=== PATIENT | female | born 1960 | race Caucasian/White ===

== ENCOUNTER → 2018-01-30 13:30 | Outpatient (CLI) | payer BC, SELFPAY ==
[2018-02-04 11:29] LABS: HPV APTIMA, High Risk Negative (Negative)
== END ==
PROVIDERS: Family Provider Family Medicine; PCP Family Medicine; Visit Provider Nurse Practitioner Women's Health
DX: Z12.4 Encounter for screening for malignant neoplasm of cervix (principal)
CPT/HCPCS: 88175; G0145

== ENCOUNTER → 2018-02-28 13:55 | Outpatient (CLI) | payer BC, SELFPAY ==
--- NOTE | 2018-02-28 13:57 | BI_ITS ---
MAMMOGRAPHY - BILATERAL SCREENING 3-D JEANINE SYNTHESIS REASON FOR EXAM: Female, 58 years old. Bilateral Screening 3-D tomosynthesis PERTINENT HISTORY: No significant family history. TECHNIQUE: 2-D mammograms and 3-D Jeanine synthesis of the breast (s) were performed. CAD was performed. COMPARISON: February 10, 2016. FINDINGS: The breast composition is composed of scattered fibroglandular density. No dense spiculated masses or suspicious microcalcifications are identified. No architectural distortion is identified. There is no skin thickening or retraction. There has been no significant change since the prior study. BI/SCREENING MAMM (CAD), BILAT IMPRESSION: No mammographic signs of malignancy. Routine yearly mammograms recommended. ASSESSMENT CATEGORY: BIRADS Category 1: Negative. A letter regarding these results will be sent to the patient by the facility within 30 days. FOLLOW UP RECOMMENDATION: Yearly follow up mammogram recommended. (A) Approximately 10% of breast cancers are not detected by mammography. A normal mammogram should not delay biopsy of a clinically suspicious abnormality. Electronically Signed: Jerson Doe MD at 15:10 EDT , Service support ,
== END ==
PROVIDERS: Family Provider Family Medicine; PCP Family Medicine; Visit Provider Nurse Practitioner Women's Health
DX: Z12.31 Encounter for screening mammogram for malignant neoplasm of breast (principal)
CPT/HCPCS: 77063; 77067

== ENCOUNTER → 2019-05-07 | Outpatient (CLI) | payer BC, SELFPAY ==
--- NOTE | 2019-05-07 08:38 | BI_ITS ---
MAMMOGRAPHY - BILATERAL SCREENING REASON FOR EXAM: Female, 59 years old. Routine annual screening examination. PERTINENT HISTORY: Non-contributory. TECHNIQUE: Digital bilateral breast jeanine (3D mammographic acquisition) in the CC and MLO projections. 2-D mediolateral oblique (MLO) and craniocaudad (CC) views of both breasts were obtained. CAD: Full Field Digital Mammography with Computer Added Detection was performed. COMPARISON: Comparison is made with prior study dated February 28, 2018. FINDINGS: Breast Composition: The breasts are almost entirely fatty. There are no dominant masses or suspicious calcifications. No other significant abnormalities are identified. There has been no significant change since the prior study. BI/SCREEN MAMM (CAD) W/JEANINE BILAT IMPRESSION: Stable bilateral screening mammogram. Yearly follow-up mammogram recommended. (A) ASSESSMENT CATEGORY: BIRADS Category 1: Negative. A letter regarding these results will be sent to the patient by the facility within 30 days. Approximately 10% of breast cancers are not detected by mammography. A normal mammogram should not delay biopsy of a clinically suspicious abnormality. [id number] Electronically Signed: Compa Cisneros, at 13:27 EDT , Service support ,
== END | disposition home or self-care (01) ==
LOC: OPBI 08:36
PROVIDERS: Family Provider Family Medicine; PCP Family Medicine; Referring Provider Nurse Practitioner Women's Health; Visit Provider Nurse Practitioner Women's Health
DX: Z12.31 Encounter for screening mammogram for malignant neoplasm of breast (principal)
CPT/HCPCS: 77063; 77067

== ENCOUNTER → 2020-09-28 13:13 | Outpatient (CLI) | payer BC, SELFPAY ==
[2019-05-07 09:02] VITALS: BMI 38.8
[2020-09-21 12:55] VITALS: BMI 39.2
--- NOTE | 2020-09-28 13:17 | BI_ITS ---
MAMMOGRAPHY - BILATERAL SCREENING REASON FOR EXAM: Female, 60 years old. Routine annual screening examination. PERTINENT HISTORY: Screening TECHNIQUE: Digital bilateral breast jeanine (3D mammographic acquisition) in the CC and MLO projections. 2-D mediolateral oblique (MLO) and craniocaudad (CC) views of both breasts were obtained. CAD: Full Field Digital Mammography with Computer Added Detection was performed. COMPARISON: 04/07/2019 FINDINGS: Breast Composition: Fatty There are no dominant masses or suspicious calcifications. No other significant abnormalities are identified. BI/SCREEN MAMM (CAD) W/JEANINE BILAT IMPRESSION: Stable bilateral screening mammogram. Yearly follow-up mammogram recommended. (A) ASSESSMENT CATEGORY: BIRADS Category 1: Negative. A letter regarding these results will be sent to the patient by the facility within 30 days. Approximately 10% of breast cancers are not detected by mammography. A normal mammogram should not delay biopsy of a clinically suspicious abnormality. [id number] Electronically Signed: Meng Le, at 17:46 EST Tel , Service support ,
== END ==
PROVIDERS: PCP Family Medicine; Referring Provider Nurse Practitioner Women's Health; Visit Provider Nurse Practitioner Women's Health
DX: Z12.31 Encounter for screening mammogram for malignant neoplasm of breast (principal)
CPT/HCPCS: 77063; 77067

== ENCOUNTER 2021-04-10 19:32 | Emergency (ER) | payer BC, SELFPAY ==
[2020-09-21 12:55] VITALS: BMI 39.2
[2021-04-10 19:32] VITALS: BP 145/95; PULSE 66; RESP 18; TEMP 35.9; O2SAT 95; BMI 37.3
--- NOTE | 2021-04-10 19:52 | ED.VIS.LOWEX ---
HPI History of Present Illness Chief Complaint: Lower Extremity Injury Informant: patient Occured/Mechanism Mechanism/Context: Yes same level fall Onset/Context/Timing Onset: Today Current Severity: Mild Maximum Severity: Moderate Narrative Narrative: Patient present secondary left ankle injury. Patient states she was going down some steps and rolled her left ankle. She fell backwards striking her car. She denies loss of consciousness. She is complaining of pain only to the left ankle, no other injury. She has been able to weight-bear. [facility] Medical History (Updated 04/10/21 @ 20:[address] Viv Banuelos MD) Anxiety Hyperlipidemia Hypertension Home Medications simvastatin 20 mg PO QODAY 09/29/14 [History Last Taken 01/08/17] sertraline 50 mg PO DAILY 02/08/17 [History Last Taken Unknown] metoprolol tartrate 50 mg tablet 50 mg PO BID tab 01/30/18 [History Last Taken Unknown] hydrochlorothiazide 25 mg tablet 25 mg PO DAILY 05/07/19 [History Last Taken Unknown] Allergy/AdvReac Type Severity Reaction Status Date / Time codeine AdvReac Upset Verified 04/10/21 19:34 Stomach Family History Mother Myocardial infarction Father Pancreatic cancer Grandfather Diabetes Surgical History S/P appendectomy S/P cholecystectomy Social History Smoking Status: Former smoker alcohol intake: current details: occasionally substance use type: does not use caffeine: Yes what type of physical activity do you participate in: walking frequency: 3-4 times per week seatbelt use: always do you feel safe at home: Yes additional social history: - Bill Patient and are both retired ROS ROS ED Constitutional Constitutional ED: Denies chills or fever(s) Eyes Eyes: Denies change in vision ENT ENT ED: Denies sore throat Cardiovascular Cardiovascular: Denies chest pain Respiratory/Chest Respiratory/Chest: Denies cough or dyspnea Gastrointestinal Gastrointestinal: Denies abdominal pain, diarrhea, nausea or vomiting Genitourinary Genitourinary ED: Denies dysuria Musculoskeletal Musculoskeletal: Reports arthralgias; Denies back pain Integumentary Denies rash Neurologic Neurologic: Denies headache(s) or weakness Psychiatric Psychiatric: Denies anxiety or depression Endocrine Endocrinology: Denies polydipsia or polyuria Allergic/Immunologic Allergic/Immunologic ED: Denies urticaria EXAM Physical Exam Const Vital Signs: 04/10/21 19:32 Temperature 96.6 F L Temperature Source Temporal Pulse Rate 66 Respiratory Rate 18 Blood Pressure 145/95 H Blood Pressure Mean 111 Pulse Ox 95 Oxygen Delivery Method Room Air Positive well nourished and well developed General Appearance ED: well developed HEENT Reports normocephalic and head/scalp atraumatic Eyes PERRL and EOMs intact bilaterally Neck supple Chest Wall inspection of chest normal and palpation of chest normal Resp normal respiratory effort and clear to auscultation bilaterally Cardio regular rate and regular rhythm GI normal to inspection, nondistended, normoactive bowel sounds Palpation: soft Extremity Extremity Narrative: Edema and tenderness over the lateral malleolus of the left ankle. Strong distal pulses. No tenderness of the foot itself. No tenderness of the proximal fibula or knee. Neuro oriented x3 and no sensory deficits noted Sensorium / Orientation: alert Psych mental status grossly normal Skin no rashes or lesions noted MDM MDM MDM Narrative Medical decision making narrative: Left ankle x-rays are ordered. Patient declined anything here for pain. Radiography Diagnostic Testing: Radiology Impression Ankle X-Ray 04/10/21 20:00 IMPRESSION: 1. Acute avulsion fracture of the undersurface of the lateral malleolus and mild to moderate overlying soft tissue swelling Electronically Signed: Lucian Combs MD at 20:23 EDT , Service support , Treatment and Re-Evaluation Comments:: 3 views of the left ankle are reviewed by myself. No acute bony injury. Soft tissue swelling is noted. Delio wrap is applied to the left ankle. This will be followed by a stirrup splint. Patient may weight-bear as tolerated. She is advised to follow-up with her PCP if not improving in the next 5 to 7 days. Addendum: Short letter the patient was discharged radiology interpretation returned with evidence of a small avulsion fracture off the distal fibula. I did call the patient and advise her of these findings. It does not change our treatment. Patient will continue to wear the air splint or boot she has at home. Discharge Plan Triage Chief Complaint: Lower Extremity Injury ED Provider: Viv Banuelos Dx/Rx/DC Orders Clinical Impression: Ankle sprain Instructions: ED Ankle Sprain (Adult) Prescriptions: No Action hydrochlorothiazide 25 mg tablet 25 mg PO DAILY RF: 0 simvastatin 20 MG tablet 20 mg PO QODAY RF: 0 metoprolol tartrate 50 mg tablet 50 mg PO BID RF: 0 sertraline 50 MG tablet 50 mg PO DAILY RF: 0 Primary Care Provider: Bart Fagan III Referrals: Bart Fagan III, MD [Primary Care Provider] - 1 Week if not improving Disposition Disposition: Home, self care Discharge Date/Time: 04/10/21 20:18
--- NOTE | 2021-04-10 20:00 | RAD_ITS ---
STUDY: X-RAY - LEFT ANKLE REASON FOR EXAM: Female, 61 years old. injury TECHNIQUE: 3 view(s) of the ankle. COMPARISON: None. FINDINGS: An acute avulsion fracture of the undersurface of the lateral malleolus is present with a small displaced bony fragment. Mild to moderate soft tissue swelling is present over the lateral malleolus. Normal tibia. Normal medial and lateral malleoli. Normal tibiotalar articulation and ankle mortise. Normal visualized talus and calcaneus. The visualized subtalar, talonavicular, calcaneocuboid and tarsal articulations are normal. RAD/Ankle min 3 Views IMPRESSION: 1. Acute avulsion fracture of the undersurface of the lateral malleolus and mild to moderate overlying soft tissue swelling Electronically Signed: Lucian Combs MD at 20:23 EDT , Service support ,
== END 2021-04-10 20:18 | disposition home or self-care (01) ==
PROVIDERS: Emergency Provider Emergency Medicine; PCP Family Medicine
DX: S93.402A Sprain of unspecified ligament of left ankle, initial encounter (principal); F41.9 Anxiety disorder, unspecified; I10 Essential (primary) hypertension; E78.5 Hyperlipidemia, unspecified; Z79.899 Other long term (current) drug therapy; Z87.891 Personal history of nicotine dependence; X50.1XXA Overexertion from prolonged static or awkward postures, initial encounter; Y93.01 Activity, walking, marching and hiking; Y92.89 Other specified places as the place of occurrence of the external cause; Y99.8 Other external cause status
CPT/HCPCS: 73610; 99283

== ENCOUNTER 2021-08-07 22:59 | Emergency (ER) | payer BC, SELFPAY ==
--- NOTE | 2021-08-07 00:20 | RAD_ITS ---
STUDY: X-RAY CHEST REASON FOR EXAM: Female, 61 years old. Neuro deficit, acute, stroke suspected TECHNIQUE: Portable, upright, AP chest radiograph COMPARISON: 01/09/2017 FINDINGS: The lungs are clear and expanded. There is no demonstrated pleural abnormality. Normal size heart. Normal mediastinum and frandy. Normal visualized pulmonary arteries. Normal visualized aortic arch and descending thoracic aorta. There are degenerative changes of the visualized thoracic spine. Normal visualized ribs, clavicles, and shoulders. There is no demonstrated abnormality of the visualized soft tissue structures of the upper abdomen. RAD/Chest 1 View IMPRESSION: No acute abnormal cardiopulmonary finding. Electronically Signed: Rogelio Stevenson MD at 0:43 EDT Tel , Service support ,
[2021-08-07 23:01] VITALS: BP 165/78; PULSE 72; RESP 17; TEMP 36.6; O2SAT 97; BMI 39.8
[2021-08-07 23:04] VITALS: BMI 39.8
--- NOTE | 2021-08-07 23:20 | EKG12_ITS ---
Test Reason : STROKE Blood Pressure : / mmHG Vent. Rate : 073 BPM Atrial Rate : 073 BPM P-R Int : 196 ms QRS Dur : 096 ms QT Int : 432 ms P-R-T Axes : 049 013 036 degrees QTc Int : 475 ms Normal sinus rhythm Normal ECG Confirmed by VIOLETTE ANDERSON, CHATO ([id number]), newspaper editor managing RICKY ROSS ([id number]) on 08/09/2021 1:25:50 PM Referred By: TRINITY Confirmed By:CHATO OAKES MD
--- NOTE | 2021-08-07 23:21 | CT_ITS ---
STUDY: CT HEAD STROKE PROTOCOL W/O CONTRAST INJECTION REASON FOR EXAM: Female, 61 years old. Neuro deficit, acute, stroke suspected RADIATION DOSAGE (If Supplied By Facility): CTDIvol = ( 44.99 ) mGy, DLP = ( 846.73 ) mGycm TECHNIQUE: Transaxial CT imaging of the brain was performed without administration of intravenous contrast material. Individualized dose optimization techniques were used for this CT. COMPARISON: No relevant priors. FINDINGS: Normal soft tissue structures. Normal calvarium. Normal size ventricles and extra-axial spaces for the patient''s age. Normal white matter tracts of the cerebral hemispheres. Normal basal ganglia and thalami. Normal brainstem. Normal cerebellum. There is no intracranial hemorrhage. There are no findings of an acute ischemic infarction. Normal visualized paranasal sinuses. ASPECT score: 10 CT/STROKE Brain/Head without Cont IMPRESSION: Normal unenhanced CT scan of the brain. N.B. : The above Results were Read Back by Rogelio Stevenson MD to Moreno Frey MD, and understanding confirmed on 08/07/2021 23:42:49 (ET). Electronically Signed: Rogelio Stevenson MD at 23:44 EDT Tel , Service support ,
--- NOTE | 2021-08-07 23:22 | ED.VIS.STROK ---
HPI History of Present Illness Chief Complaint: Neuro S/Sx Detail of Chief Complaint: Left eye blurry vision. Informant: patient Onset/Context/Timing Onset: Today Current Severity: Mild Maximum Severity: Mild Associated Symptoms Associated Symptoms: Negative for Headache, Nausea, Vomiting and Chest Pain Narrative Narrative: 61-year-old female past medical history of ocular migraines which she states this is different, hypertension, high cholesterol and depression. She is never had a stroke or mini stroke. She has no cardiac history. States around 7 PM which is 4 hours and 20 minutes ago now she started having abnormal vision in her left eye and now it is blurry over the last hour. She denies any trauma. She is on no blood thinners. She denies any speech problems, headache or trouble using her arms or legs. No weakness or numbness. Prior similar symptoms: No Recent Illness/Hospitalization: No PFSH PFS Medical History (Updated 08/08/21 @ 00:[address] Joe Frey MD) Anxiety Hyperlipidemia Hypertension Home Medications simvastatin 20 mg PO QODAY 09/29/14 [History Last Taken 01/08/17] sertraline 50 mg PO DAILY 02/08/17 [History Last Taken Unknown] metoprolol tartrate 50 mg tablet 50 mg PO BID tab 01/30/18 [History Last Taken Unknown] hydrochlorothiazide 25 mg tablet 25 mg PO DAILY 05/07/19 [History Last Taken Unknown] Allergy/AdvReac Type Severity Reaction Status Date / Time codeine AdvReac Upset Verified 08/07/21 23:03 Stomach Family History Mother Myocardial infarction Father Pancreatic cancer Grandfather Diabetes Surgical History S/P appendectomy S/P cholecystectomy Social History Smoking Status: Former smoker alcohol intake: current details: occasionally substance use type: does not use caffeine: Yes what type of physical activity do you participate in: walking frequency: 3-4 times per week seatbelt use: always do you feel safe at home: Yes additional social history: - Bill Patient and are both retired ROS ROS ED ROS Narrative Denies recent illness. Review of Systems ROS Unobtainable: Denies due to encephalopathy Constitutional Constitutional ED: Denies fever(s) Eyes Eyes: Reports blurry vision and change in vision ENT ENT ED: Denies ear pain Cardiovascular Cardiovascular: Denies chest pain Respiratory/Chest Respiratory/Chest: Denies dyspnea Gastrointestinal Gastrointestinal: Denies abdominal pain Genitourinary Genitourinary ED: Denies dysuria Musculoskeletal Musculoskeletal: Denies myalgias Integumentary Denies rash Neurologic Neurologic: Denies headache(s) Psychiatric Psychiatric: Denies depression Endocrine Endocrinology: Denies polyuria Hematologic/Lymphatic Hematologic/Lymphatic: Denies easy bruising Allergic/Immunologic Allergic/Immunologic ED: Denies urticaria EXAM Physical Exam Narrative Exam Narrative: 59-year-old female no acute distress vital signs stable afebrile. Initial blood pressure 165/78. H EENT exam is unremarkable. Pupils are round reactive light his motions are intact. No facial droop. Normal speech. Lungs clear to auscultation. Heart regular rhythm. Abdomen soft nontender. Moving all 4 extremities. Bilateral traveling electrician strength. Bilateral dorsi plantar flexion. Neurologic exam she has blurry vision in her left eye other than that she has no other neurological findings. NIH 1. Const Vital Signs: 08/07/21 23:01 08/07/21 23:35 08/07/21 23:36 Temperature 97.8 F 97.8 F Temperature Source Oral Oral Pulse Rate 72 70 70 Respiratory Rate 17 16 16 Blood Pressure 165/78 H 170/95 H 170/65 H Blood Pressure Mean 107 120 100 Pulse Ox 97 97 97 Oxygen Delivery Method Room Air Room Air Room Air 08/07/21 23:41 08/08/21 00:25 Temperature Temperature Source Pulse Rate 69 Respiratory Rate 16 Blood Pressure 142/72 H Blood Pressure Mean 95 Pulse Ox 96 Oxygen Delivery Method Room Air Room Air Positive well nourished and well developed; Negative for cachectic or contractures General Appearance ED: well developed and NAD; Negative for cachectic or contractures Nutritional Appearance: Negative for cachectic HEENT Reports moist mucous membranes atraumatic; Negative for trauma Eyes PERRL and EOMs intact bilaterally Neck no lymphadenopathy, supple and no JVD General: Negative for tenderness Chest Wall inspection of chest normal and palpation of chest normal Resp normal respiratory effort and clear to auscultation bilaterally Auscultation: Negative for rales, rhonchi or wheezes Cardio no murmurs Rate: regular rate Rhythm: regular rhythm Heart Sounds: S1 normal and S2 normal GI normal to inspection, nondistended, normoactive bowel sounds, soft to palpation, non-tender, non-distended and no masses Auscultation: normoactive bowel sounds Palpation: Negative for tender or guarding Back/Spine no CVA tenderness General Back: Negative for CVA tenderness Extremity normal to inspection General Extremety ED: Negative for deformity, edema or tenderness General Extremity: Negative for deformity or edema Neuro oriented x3, CN's II-XII intact bilaterally and No no sensory deficits noted Neuro Narrative: Decreased vision left eye. NIH equals 1. Sensorium / Orientation: alert, oriented to person, oriented to place and oriented to time; Negative for orientation impaired, confused, lethargic or stuporous Speech: speech normal Gait (Neuro): normal gait Motor Exam: strength 5/5 throughout; Negative for general weakness or strength abnormal Psych mental status grossly normal Skin no wounds General Skin Exam: Negative for jaundice Lesions: no lesions Rashes: no rashes STROKE Vital Signs/Narrative: Vital Signs Temp Pulse Resp BP Pulse Ox 08/08/21 00:25 69 16 142/72 H 96 08/07/21 23:36 97.8 F 70 16 170/65 H 97 08/07/21 23:35 70 16 170/95 H 97 08/07/21 23:01 97.8 F 72 17 165/78 H 97 MDM MDM MDM Narrative Medical decision making narrative: 61-year-old female 4-hour history of change in vision of her left eye now blurry. Differential would include stroke versus mini stroke versus acute ophthalmologic issues such as retinal artery or vein occlusion or retinal hemorrhage etc. She will be put through the stroke protocol and also speak with ophthalmology. Repeat exam patient is doing well at 12:30 AM. Her exam is unchanged. Her neurologic exam is unchanged. Her visual acuity was 2030 in the right eye. 20/50 in the left eye which is the affected eye. 20/30 bilaterally. This is with her glasses on. All this was discussed with the stroke neurologist. The patient is not a TPA candidate. She is outside the window and really does not qualify. Her CAT scans were unremarkable. I also spoke to the partner alliance manager on-call Dr. Walker and the patient will follow up with her on an outpatient basis. We suspect this is purely an ophthalmologic problem. They can get outpatient MRI as needed. Lab Data Attestation: I reviewed the patient's lab results. Lab results narrative: CBC shows a white count of 10 hemoglobin 13. PT PTT INR normal. Electrolytes are unremarkable gap is 7 normal creatinine. Glucose of 112. Troponin 9. CTA head and neck and CT of her brain was read as negative by the radiologist. He call me with his reading. Labs: Laboratory Results - last 24 hr 08/07/21 08/07/21 08/07/21 23:07 23:07 23:07 WBC 10.6 RBC 4.60 Hgb 13.8 Hct 41.8 MCV 90.9 MCH 30.0 MCHC 33.0 RDW Std Deviation 38.8 RDW Coeff of Jorge Alberto 11.8 Plt Count 265 MPV 10.8 Immature Gran % (Auto) 0.500 Neut % (Auto) 68.1 Lymph % (Auto) 23.1 Cascade % (Auto) 6.8 Eos % (Auto) 1.2 Baso % (Auto) 0.3 Absolute Neuts (auto) 7.2 Absolute Lymphs (auto) 2.44 Nucleated RBC % 0 PT 12.6 INR 1.0 APTT 30.5 Sodium 141 Potassium 3.5 Chloride 105 Carbon Dioxide 29.0 Anion Gap 7 BUN 18 Creatinine 0.94 Estim Creat Clear Calc 67.10 Est GFR (MDRD) Af Amer 78 Est GFR (MDRD) Non-Af 64 BUN/Creatinine Ratio 19.2 Glucose 112 H Calcium 9.3 Troponin I High Sens 9 POC Glucose 08/07/21 23:41 WBC RBC Hgb Hct MCV MCH MCHC RDW Std Deviation RDW Coeff of Jorge Alberto Plt Count MPV Immature Gran % (Auto) Neut % (Auto) Lymph % (Auto) Cascade % (Auto) Eos % (Auto) Baso % (Auto) Absolute Neuts (auto) Absolute Lymphs (auto) Nucleated RBC % PT INR APTT Sodium Potassium Chloride Carbon Dioxide Anion Gap BUN Creatinine Estim Creat Clear Calc Est GFR (MDRD) Af Amer Est GFR (MDRD) Non-Af BUN/Creatinine Ratio Glucose Calcium Troponin I High Sens POC Glucose 100 Radiography Diagnostic Testing: Radiology Impression Brain CT 08/07/21 23:21 IMPRESSION: Normal unenhanced CT scan of the brain. N.B. : The above Results were Read Back by Rogelio Stevenson MD to Moreno Frey MD, and understanding confirmed on 08/07/2021 23:42:49 (ET). Electronically Signed: Rogelio Stevenson MD at 23:44 EDT Tel , Service support , ADDENDUM: 08/07/21 2351 IMPRESSION: Normal unenhanced CT scan of the brain. N.B. : The above Results were Read Back by Rogelio Stevenson MD to Moreno Frey MD, and understanding confirmed on 08/07/2021 23:42:49 (ET). Electronically Signed: Rogelio Stevenson MD at 23:44 EDT Tel , Service support , Head/Neck CTA 08/07/21 23:35 IMPRESSION: Normal CTA Head and neck with contrast. Electronically Signed: Reginaldo Dawson MD at 0:02 EDT , Service support , ADDENDUM: 08/08/21 0012 IMPRESSION: Normal CTA Head and neck with contrast. N.B. : The above Results were Read Back by Reginaldo Dawson MD to Moreno Frey MD, and understanding confirmed on 08/08/2021 00:06:00 (ET). Electronically Signed: Reginaldo Dawson MD at 0:02 EDT , Service support , Rhythm Strip Rhythm Strip: Sinus Rhythm Rate: 73 Ectopy: None EKG Initial EKG: Attestation: I personally reviewed and interpreted this EKG as follows: Interpretation: Sinus Rhythm and No Acute Injury Pattern Comments: Normal sinus rhythm rate of 73 no acute signs of AL nor ischemia. Prior EKG tracings: not available for review Stroke Documentation Questions Stroke Team Activated: Yes Reviewed Inclusion/Exclusion criteria: Yes Was Patient considered for Endovascular Intervention?: No IV Alteplase (t-PA) Administered: No No contraindications for IV Alteplase (t-PA) administration.: No Alteplase (t-PA) risks, benefits, alternative discussed: No Not given: Patient refusal: No Discharge Plan Triage Chief Complaint: Neuro S/Sx ED Provider: Joe Frey Dx/Rx/DC Orders Clinical Impression: Decreased vision of left eye Instructions: Understanding Vision Problems Prescriptions: No Action hydrochlorothiazide 25 mg tablet 25 mg PO DAILY RF: 0 simvastatin 20 MG tablet 20 mg PO QODAY RF: 0 metoprolol tartrate 50 mg tablet 50 mg PO BID RF: 0 sertraline 50 MG tablet 50 mg PO DAILY RF: 0 Primary Care Provider: Care Physician,No Primary Referrals: Ivelisse Walker MD [STAFF PHYSICIAN] - 1 Day Care Physician,No Primary [Primary Care Provider] - Activity Restrictions/Additional Instructions: Call and follow-up with Dr. Walker's office first thing Monday. Ideally they should see you in the office on Monday no later than Monday. All your test tonight were unremarkable. Both your CAT scans of your head neck, EKG and all your lab work were normal. Return if any drastic change in her vision may get a little better or worse but other than that unless there is a drastic change just follow-up. Disposition Disposition: Home, Self Care
[2021-08-07 23:35] VITALS: BP 170/95; PULSE 70; RESP 16; O2SAT 97
--- NOTE | 2021-08-07 23:35 | CT_ITS ---
We are attempting to reach an attending provider to discuss findings. An addendum with communication details will be sent when the communication is complete. STUDY: CTA HEAD AND NECK WITH CONTRAST REASON FOR EXAM: Female, 61 years old. Neurologic deficit, acute stroke suspected RADIATION DOSAGE (If Supplied By Facility): CTDIvol = ( 19.75 ) mGy, DLP = ( 745.46 ) mGycm TECHNIQUE: CT angiography was performed with a multi-detector CT scanner. Data acquisition was obtained from the skull base through the vertex following intravenous administration of IV 100mL Isovue-370. MIP images were reconstructed from the axial data set. Post-processing of the angiographic images was performed, with multiplanar reformation and 3D reconstruction. Individualized dose optimization techniques were used for this CT. COMPARISON: CT head August 07, 2021. FINDINGS: Normal bilateral petrous carotid arteries. Normal right cavernous carotid artery with a normal supraclinoid bifurcation. Normal left cavernous carotid artery with a normal supraclinoid bifurcation. Normal right A1 segments of the anterior cerebral artery. Normal left A1 segments of the anterior cerebral artery. Normal intact anterior communicating artery (ACOM). Normal bilateral A2 segments of the anterior cerebral arteries. Normal right M1 and M2 segments of the middle cerebral arteries, with a normal M1 bifurcation. Normal left M1 and M2 segments of the middle cerebral arteries, with a normal M1 bifurcation. Normal right posterior communicating artery (PCOM). Normal left posterior communicating artery (PCOM). Normal bilateral vertebral arteries. Normal basilar artery with a normal basilar bifurcation. The visualized bilateral superior cerebellar (SCA) arteries are normal. Normal bilateral P1, P2 and visualized P3 segments of the posterior cerebral arteries. There is no demonstrated aneurysm of the [place] of [place]. There is no demonstrated abnormality of the visualized brain. AORTIC ARCH: Normal visualized aortic arch. Normal origins of the brachiocephalic, left common carotid, and left subclavian arteries. RIGHT CAROTID ARTERIES: Normal right common carotid artery (CCA). Normal right common carotid bulb. Normal origin of the right internal carotid (ICA) artery without a hemodynamically significant stenosis. Normal visualized cervical portion of the right internal carotid artery. Normal origin of the right external carotid artery (ECA). LEFT CAROTID ARTERIES: Normal left common carotid artery (CCA). Normal left common carotid bulb. Normal origin of the left internal carotid (ICA) artery without a hemodynamically significant stenosis. Normal visualized cervical portion of the left internal carotid artery. Normal origin of the left external carotid artery (ECA). VERTEBRAL ARTERIES: Normal bilateral vertebral arteries. Degenerative changes of the cervical spine. CT/STROKE CTA Head AND Neck W/Con IMPRESSION: Normal CTA Head and neck with contrast. Electronically Signed: Reginaldo Dawson MD at 0:02 EDT , Service support ,
[2021-08-07 23:36] VITALS: BP 170/65; PULSE 70; RESP 16; TEMP 36.6; O2SAT 97
--- NOTE | 2021-08-07 23:38 | ED.RN ---
PT was brought immediately back to Room 14, aware of signs and symptoms. No stroke team currently, MD wants to wait for his evaluation.
[2021-08-07 23:49] LABS: Absolute Lymphocyte Count 2.44 X10^3/uL (0.83-4.51); Absolute Neutrophil Count 7.2 X10^3/uL (2.0-7.7); Basophil# 0.03 X10^3/uL; Basophil% 0.3 % (0-1); Eosinophil# 0.13 X10^3/uL; Eosinophils% 1.2 % (0-5); Hematocrit 41.8 % (37-47); Hemoglobin 13.8 g/dL (12.0-15.0); Lymphocyte # 2.44 X10^3/ul (0.83-4.51); Lymphocyte % 23.1 % (19-41); Mean Corpuscular Volume 90.9 fL (81-99); Mean Platelet Vol. 10.8 fl (6.2-12.0); Monocyte# 0.72 X10^3/uL; Monocyte% 6.8 % (0-10); NRBC Flagged by Analyzer 0 % (0-5); Neutrophil % 68.1 % (47-70); Platelet Count 265 K/mm3 (150-450); RBC Distribution Width CV 11.8 % (11.6-14.6); RBC Distribution Width SD 38.8 fl (35.1-43.9); White Blood Count 10.6 K/mm3 (4.4-11.0)
[2021-08-07 23:52] LABS: Prothrombin Time (Protime)PT. 12.6 SECONDS (11.7-14.9)
[2021-08-07 23:53] LABS: Partial Thromboplast Time 30.5 Seconds (24.1-36.2)
[2021-08-08] LABS: Bedside Glucose 100 mg/dL (70-110)
[2021-08-08 00:01] LABS: Anion Gap 7 (5-15); BUN 18 mg/dL (7-18); BUN/Creat Ratio 19.2 RATIO (10-20); Calcium,Total 9.3 mg/dL (8.5-10.1); Chloride 105 mmol/L (98-107); Creatinine, Serum 0.94 mg/dL (0.55-1.02); EST Glomerular Filtration Rate 64 mL/min (>60); Est Glom Filt Rate - Afr Amer 78 mL/min (>60); Glucose 112 mg/dL (74-106); Potassium 3.5 mmol/L (3.5-5.1); Sodium Level 141 mmol/L (136-145); Troponin-I HS 9 pg/mL (3.0-54.0)
[2021-08-08 00:25] VITALS: BP 142/72; PULSE 69; RESP 16; O2SAT 96
[2021-08-08 01:11] VITALS: BP 138/87; PULSE 84; RESP 18; O2SAT 98
== END 2021-08-08 01:13 | disposition home or self-care (01) ==
PROVIDERS: Emergency Provider Emergency Medicine
DX: H54.7 Unspecified visual loss (principal); Z87.891 Personal history of nicotine dependence
CPT/HCPCS: 70450; 70496; 70498; 71045; 80048; 82962; 84484; 85025; 85610; 85730; 93005; 99285; Q9967

== ENCOUNTER → 2021-10-26 10:30 | Outpatient (CLI) | payer BC, SELFPAY ==
--- NOTE | 2021-10-26 10:32 | BI_ITS ---
MAMMOGRAPHY - BILATERAL SCREENING REASON FOR EXAM: Female, 61 years old. Routine annual screening examination. PERTINENT HISTORY: Non-contributory. TECHNIQUE: Digital bilateral breast jeanine (3D mammographic acquisition) in the CC and MLO projections. 2-D mediolateral oblique (MLO) and craniocaudad (CC) views of both breasts were obtained. CAD: Full Field Digital Mammography with Computer Added Detection was performed. COMPARISON: Comparison is made with prior study dated 09/28/2020 and 05/07/2019. FINDINGS: Breast Composition: The breasts are almost entirely fatty. There are no dominant masses or suspicious calcifications. Stable small benign-appearing bilateral axillary lymph nodes. No other significant abnormalities are identified. There has been no significant change since the prior study. BI/SCRN MAMM (CAD)W/JEANINE BILAT IMPRESSION: Stable bilateral screening mammogram. Yearly follow-up mammogram recommended. (A) ASSESSMENT CATEGORY: BIRADS Category 2: Benign. A letter regarding these results will be sent to the patient by the facility within 30 days. Approximately 10% of breast cancers are not detected by mammography. A normal mammogram should not delay biopsy of a clinically suspicious abnormality. [id number] Electronically Signed: Compa Cisneros MD at 11:35 EST , Service support ,
== END ==
PROVIDERS: Visit Provider Nurse Practitioner Women's Health
DX: Z12.31 Encounter for screening mammogram for malignant neoplasm of breast (principal)
CPT/HCPCS: 77063; 77067

== ENCOUNTER → 2022-11-01 | Outpatient (CLI) | payer BC, SELFPAY ==
--- NOTE | 2022-11-01 14:19 | BI_ITS ---
MAMMOGRAPHY - BILATERAL SCREENING REASON FOR EXAM: Female, 62 years old. Routine annual screening examination. PERTINENT HISTORY: Non-contributory. TECHNIQUE: Digital bilateral breast jeanine (3D mammographic acquisition) in the CC and MLO projections. 2-D mediolateral oblique (MLO) and craniocaudad (CC) views of both breasts were obtained. CAD: Full Field Digital Mammography with Computer Added Detection was performed. COMPARISON: Mammogram from 10/26/2021, 09/28/2020. FINDINGS: Breast Composition: The breasts are almost entirely fatty. There are no dominant masses or suspicious calcifications. No other significant abnormalities are identified. There has been no significant change since the prior study. BI/SCRN MAMM (CAD)W/JEANINE BILAT IMPRESSION: Stable bilateral screening mammogram. Yearly follow-up mammogram recommended. (A) ASSESSMENT CATEGORY: BIRADS Category 1: Negative. A letter regarding these results will be sent to the patient by the facility within 30 days. Approximately 10% of breast cancers are not detected by mammography. A normal mammogram should not delay biopsy of a clinically suspicious abnormality. Electronically Signed: Jakob Olmstead, at 14:37 EST ,
== END | disposition home or self-care (01) ==
LOC: OPBI 14:02
PROVIDERS: Visit Provider Nurse Practitioner Women's Health
DX: Z12.31 Encounter for screening mammogram for malignant neoplasm of breast (principal)
CPT/HCPCS: 77063; 77067

== ENCOUNTER → 2023-04-27 | Outpatient (CLI) | payer BC, SELFPAY ==
--- NOTE | 2023-04-27 14:42 | CT_ITS ---
STUDY: LOW DOSE CT LUNG CANCER SCREENING REASON FOR EXAM: Female, 63 years old. Smoking history. quit smoking 8 years ago, smoked 1/2 pack per day x 25 years RADIATION DOSAGE (If Supplied By Facility): CTDIvol = ( 4.02 ) mGy, DLP = ( 121.85 ) mGycm TECHNIQUE: No contrast was administered. Low dose technique was utilized (average mAS-38 and kVp 120). 1.25 mm axial source images with a slice interval of 1.25-mm were reconstructed in lung windows. 2.5 mm axial source images with a slice interval of 2.5-mm were reconstructed in lung windows. 5.0 mm axial source images with a slice interval of 5.0-mm were reconstructed in soft tissue windows. COMPARISON: None. NODULES: No pulmonary nodule or localized groundglass opacity. Emphysema: Not present Endobronchial lesion: None Aorta: Atherosclerosis. CORONARY ARTERIES: Coronary artery calcification is seen. Heart: Normal size Pulmonary artery: Unremarkable for unopacified technique. Mediastinal nodes: No adenopathy. Other chest and abdominal findings: None require additional follow-up. CT/Low Dose CT Lung Screening IMPRESSION: Lung-RADS category 1 - Continue annual screening with LDCT in 12 months. IMPORTANT NOTES FOR USE: ACR Lung-RADS Version 1.1 Assessment Categories Release Date: 2018 Category: Coded 0-4 bases on nodule(s) with highest degree of suspicion. Negative screen is defined as categories 1 and 2; a positive screen is defined as categories 3 and 4. Category 3 and 4A nodules that are unchanged on interval CT should be coded as category 2, and individuals returned to screening in 12 months. Category 4X: Category 3 or 4 nodules with additional imaging findings that increase the suspicion of lung cancer, such as spiculation, GGN that doubles in size in 1 year, enlarged lymph notes, etc. Category Modifiers: S (significant finding unrelated to lung cancer) Electronically Signed: Alber Bess (Brooks), at 20:14 EDT Reading Location ID and State: [facility] / [place] , Service support ,
== END | disposition home or self-care (01) ==
PROVIDERS: PCP Family Medicine; Referring Provider Physician Assistant; Visit Provider Physician Assistant
DX: Z87.891 Personal history of nicotine dependence (principal); Z12.2 Encounter for screening for malignant neoplasm of respiratory organs
CPT/HCPCS: 71271

== ENCOUNTER → 2023-11-07 | Outpatient (CLI) | payer BC, SELFPAY ==
--- NOTE | 2023-11-07 12:42 | BI_ITS ---
MAMMOGRAPHY - BILATERAL SCREENING 3-D TOMOSYNTHESIS REASON FOR EXAM: Female, 63 years old. Routine screening for breast cancer. PERTINENT HISTORY: No significant family history. TECHNIQUE: 2-D mammograms and 3-D Tomosynthesis of the breast (s) were performed. CAD was performed. COMPARISON: November 01, 2022, October 26, 2021 FINDINGS: The breast composition is almost entirely fat. Stable normal lymph nodes and scattered benign calcifications. No dominant masses, suspicious microcalcifications, asymmetries, skin thickening or nipple retraction. BI/SCRN MAMM (CAD)W/JEANINE BILAT IMPRESSION: No interval change and no mammographic signs of malignancy. Routine yearly mammogram recommended. ASSESSMENT CATEGORY: BIRADS Category 2: Benign. A letter regarding these results will be sent to the patient by the facility within 30 days. FOLLOW UP RECOMMENDATION: Yearly follow up mammogram recommended. (A) Approximately 10% of breast cancers are not detected by mammography. A normal mammogram should not delay biopsy of a clinically suspicious abnormality. Electronically Signed: Clive Monreal MD at 15:27 EST ,
[2023-11-13 15:08] LABS: HPV APTIMA, High Risk Negative (Negative)
== END | disposition home or self-care (01) ==
PROVIDERS: PCP Family Medicine; Referring Provider Nurse Practitioner Women's Health; Visit Provider Nurse Practitioner Women's Health
DX: Z12.31 Encounter for screening mammogram for malignant neoplasm of breast (principal); Z12.4 Encounter for screening for malignant neoplasm of cervix
CPT/HCPCS: 77063; 77067; 87624; 88175; G0145

== ENCOUNTER → 2024-09-05 | Outpatient (CLI) | payer MEDICARE, BC, SELFPAY ==
--- NOTE | 2024-09-05 07:44 | CT_ITS ---
STUDY: CT CHEST WITHOUT CONTRAST REASON FOR EXAM: Female, 64 years old. BENIGN HYPERTENSION RADIATION DOSAGE (If Supplied By Facility): CTDIvol = ( 12.19 ) mGy, DLP = ( 195.04 ) mGycm TECHNIQUE: Transaxial imaging was performed without the administration of intravenous contrast material. Cardiac over read examination. Individualized dose optimization techniques were used for this CT. COMPARISON: Comparison is made with prior study dated April 27, 2023. FINDINGS: CHEST The lungs are normal. There is no demonstrated pleural abnormality. There is minimal coronary artery calcification. Small mediastinal lymph nodes. Normal hilar regions. Normal unenhanced pulmonary arteries. Normal aorta arch and descending thoracic aorta. Normal osseous structures. There is no demonstrated abnormality of the visualized upper abdomen. CT/Limited Chest CT Cardiac Only IMPRESSION: Mild degree of coronary artery calcification. Electronically Signed: Compa Cisneros MD at 9:33 EDT ,
--- NOTE | 2024-09-05 15:37 | CA.SCORE ---
Calcium Scoring Date of Study:: 09/05/24 Indications Indications: HTN Coronary Calcium Scoring: High-resolution Computed Tomographic imaging of the chest was performed on [09/05/24 ], with particular attention paid to the coronary arteries. Images from the examination were analyzed for the presence and extent of coronary artery calcification , using coronary calcium quantification software. The patient tolerated the procedure well and there were no complications. The results of the coronary calcification analysis are provided below. Findings Coronary Artery Left Main (LM): 0 Left Anterior Descending (LAD): 0 Left Circumflex (LCX): 0 Right Coronary Artery (RCA): 0 Total Agatston Score: 0 Percentile Rankin Calcium Scoring Interpretation: Different methods to categorize the overall amount of coronary plaque. Overall amount CAC SIS Visual of coronary plaque P1 Mild -100 <2 1-2 vessels with mild amount of plaque P2 Moderate 101-300 3-4 1-2 vessels with moderate amount, 3 vessels with mild amount of plaque P3 Severe 301-999 5-7 3 vessels with moderate amount, 1 vessel with severe amount of plaque P4 Extensive >1000 >8 2-3 vessels with severe amount of plaque Conclusion: No coronary atherosclerotic plaquing noted
== END | disposition home or self-care (01) ==
LOC: CT 07:43
PROVIDERS: PCP Family Medicine; Referring Provider Nurse Practitioner Family; Visit Provider Nurse Practitioner Family
DX: I10 Essential (primary) hypertension (principal); I34.1 Nonrheumatic mitral (valve) prolapse; E78.2 Mixed hyperlipidemia
CPT/HCPCS: 75571; 76380

== ENCOUNTER → 2024-11-11 | Outpatient (CLI) | payer MEDICARE, SELFPAY ==
--- NOTE | 2024-11-11 14:01 | BI_ITS ---
MAMMOGRAPHY - BILATERAL SCREENING REASON FOR EXAM: Female, 64 years old. Routine annual screening examination. PERTINENT HISTORY: Non-contributory. TECHNIQUE: Digital bilateral breast jeanine (3D mammographic acquisition) in the CC and MLO projections. 2-D mediolateral oblique (MLO) and craniocaudad (CC) views of both breasts were obtained. CAD: Full Field Digital Mammography with Computer Added Detection was performed. COMPARISON: Comparison is made with prior study dated May 27, 2024 and November 01, 2022. FINDINGS: Breast Composition: The breasts are almost entirely fatty. There are no dominant masses or suspicious calcifications. No other significant abnormalities are identified. There has been no significant change since the prior study. BI/SCRN MAMM (CAD)W/JEANINE BILAT IMPRESSION: Stable bilateral screening mammogram. Yearly follow-up mammogram recommended. (A) ASSESSMENT CATEGORY: BIRADS Category 1: Negative. A letter regarding these results will be sent to the patient by the facility within 30 days. Approximately 10% of breast cancers are not detected by mammography. A normal mammogram should not delay biopsy of a clinically suspicious abnormality. [id number] Electronically Signed: Compa Cisneros MD at 10:36 EST ,
== END | disposition home or self-care (01) ==
LOC: OPBI 14:00
PROVIDERS: PCP Family Medicine; Referring Provider Nurse Practitioner Women's Health; Visit Provider Nurse Practitioner Women's Health
DX: Z12.31 Encounter for screening mammogram for malignant neoplasm of breast (principal)
CPT/HCPCS: 77063; 77067